=== PATIENT | male | born 1995 | race Caucasian/White ===

== ENCOUNTER 2016-12-04 00:36 | Emergency (ER) | payer OTHER ==
[~2016-12-04] VITALS: Ht 172.7 cm; Wt 95.3 kg
[2016-12-04 00:44] VITALS: BP 145/85
[2016-12-04] MEDS ORDERED: LIDOCAINE 1% / SOD BICARB 8.4% 20 ML VIAL. IJ ONE (01:15)
--- NOTE | 2016-12-04 01:26 | PHYS DOC ---
Past Medical History Past Medical History: No Pertinent History Past Surgical History: No Surgical History Alcohol Use: Occasionally Drug Use: None Adult General Chief Complaint Chief Complaint: LACERATION/AVULSION HPI HPI Patient is a 21 year ol male who presents to the ER today with a laceration to his right thumb. 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 Patient denies any other complaints. Patient's tetanus status is up-to-date. Physical exam is significant for a 3 cm laceration to the lateral/radial aspect of his right thumb. Patient is neurovascularly intact. Bleeding is well- controlled. Patient has sensation distally. Assessment and plan this is a 21-year-old gentleman status post laceration to his right thumb. Patient was sutured in the ER. Patient tolerate procedure well. Check in 2 days. Sutures out in 7-10 days. She has follow-up with workman's comp. Laceration procedure note wound anesthetized with 2 mL of lidocaine. Wound was irrigated with 200 mL of normal saline as well as Betadine prep. 4 times 5. 0 Ethilon sutures simple interrupted placed. Review of Systems Review of Systems Constitutional: Denies fever or chills [] Eyes: Denies change in visual acuity, redness, or eye pain [] All other review systems are negative except as documented in the history of present illness portion. Current Medications Current Medications Current Medications Medications (Trade) Dose Ordered Sig/Krista Start Time Stop Time Status Last Admin Dose Admin Lidocaine/Sodium Bicarbonate (Buffered Lidocaine 1%) 20 ml STK-MED ONCE 12/04/16 01:15 12/04/16 01:16 DC Allergies Allergies Allergies Coded Allergies Type Severity Reaction Last Updated Verified sulfamethoxazole Allergy Unknown 12/04/16 Yes trimethoprim Allergy Unknown 12/04/16 Yes Physical Exam Physical Exam Constitutional: Well developed, well nourished, no acute distress, non-toxic appearance. [] HENT: Normocephalic, atraumatic, bilateral external ears normal, oropharynx moist, no oral exudates, nose normal. [] Eyes: PERRLA, EOMI, conjunctiva normal, no discharge. [] Neck: Normal range of motion, no tenderness, supple, no stridor. [] Cardiovascular:Heart rate regular rhythm, no murmur [] Lungs & Thorax: Bilateral breath sounds clear to auscultation [] Abdomen: Bowel sounds normal, soft, no tenderness, no masses, no pulsatile masses. [] Skin: Warm, dry, no erythema, no rash. [] Back: No tenderness, no CVA tenderness. [] Extremities: See above Current Patient Data Vital Signs Vital Signs Date Time Temp Pulse Resp B/P (MAP) Pulse Ox O2 Delivery O2 Flow Rate FiO2 12/04/16 00:44 98.1 93 16 95 Room Air 98.1 EKG EKG [] Radiology/Procedures Radiology/Procedures [] Course & Med Decision Making Course & Med Decision Making Pertinent Labs and Imaging studies reviewed. (See chart for details) [] Dragon Disclaimer Dragon Disclaimer This electronic medical record was generated, in whole or in part, using a voice recognition dictation system. Departure Departure Impression: Primary Impression: Laceration of right thumb Disposition: 01 HOME, SELF-CARE Condition: IMPROVED Referrals: UNKNOWN PCP NAME (PCP) Patient Instructions: Laceration Care, Adult Additional Instructions: Wound check in 2 days. Sutures out in 7-10 days. Please make an appointment with her workman's comp physician to further assess your injury and to determine your work limitations. KLEVER MAN MD Dec 04, 2016 01:26
[2016-12-04] MEDS ORDERED: NEOMY/BACITR/POLYMYXIN OINT PACKET. TP ONE (01:55)
== END 2016-12-04 02:01 | disposition home or self-care (01) ==
LOC: ER 00:36
DX: S61.011A Laceration without foreign body of right thumb without damage to nail, initial encounter (principal); Z88.1 Allergy status to other antibiotic agents; Z88.2 Allergy status to sulfonamides; W26.8XXA Contact with other sharp object(s), not elsewhere classified, initial encounter; Y93.89 Activity, other specified; Y92.89 Other specified places as the place of occurrence of the external cause; Y99.8 Other external cause status
CPT/HCPCS: 12002; 99283-25

== ENCOUNTER 2016-12-08 13:50 | Emergency (ER) | payer OTHER ==
[~2016-12-08] VITALS: Ht 172.7 cm; Wt 95.3 kg
[2016-12-08 14:00] VITALS: BP 144/82
--- NOTE | 2016-12-08 14:07 | PHYS DOC ---
Past Medical History Past Medical History: No Pertinent History Past Surgical History: No Surgical History Alcohol Use: Occasionally Drug Use: None Adult General Chief Complaint Chief Complaint: WOUND CHECK [facility] HPI Patient is a 21 year old male presents to the emergency department with request for repeat wound check. Patient states that he had sutures placed 6 days ago and they began to come out within 2 days. Since states he was evaluated in another ER for the same complaint and Steri-Strips were placed. He states the Steri-Strips come off and he is here seeking placement of Steri- Strips. Review of Systems Review of Systems Constitutional: Denies fever or chills [] Eyes: Denies change in visual acuity, redness, or eye pain [] HENT: Denies nasal congestion or sore throat [] Respiratory: Denies cough or shortness of breath [] Cardiovascular: No additional information not addressed in HPI [] GI: Denies abdominal pain, nausea, vomiting, bloody stools or diarrhea [] : Denies dysuria or hematuria [] Musculoskeletal: Laceration Integument: Denies rash or skin lesions [] Neurologic: Denies headache, focal weakness or sensory changes [] Endocrine: Denies polyuria or polydipsia [] Allergies Allergies Allergies Coded Allergies Type Severity Reaction Last Updated Verified sulfamethoxazole Allergy Unknown 12/04/16 Yes trimethoprim Allergy Unknown 12/04/16 Yes Physical Exam Physical Exam Skin: Right hand, proximal to the thumb on the lateral aspect of the hand, partially healed laceration, well granulated, no surrounding erythema or induration. There is no discharge from the wound. There is one remaining suture. Patient has full range of motion of the thumb without difficulty. Neurovascular intact distally. Wound care: Wound cleansed, Steri-Strips placed by nursing staff. Patient tolerated well. EKG EKG [] Radiology/Procedures Radiology/Procedures [] Course & Med Decision Making Course & Med Decision Making Pertinent Labs and Imaging studies reviewed. (See chart for details) [] Dragon Disclaimer Dragon Disclaimer This electronic medical record was generated, in whole or in part, using a voice recognition dictation system. Departure Departure Impression: Primary Impression: Visit for wound check Disposition: HOME, SELF-CARE Condition: STABLE Referrals: UNKNOWN PCP NAME (PCP) Additional Instructions: Keep area clean and dry. MITCHEL BUCHANAN FORDER OPERATOR Dec 08, 2016 14:07
== END 2016-12-08 14:30 | disposition home or self-care (01) ==
LOC: ER 13:50
DX: Z48.01 Encounter for change or removal of surgical wound dressing (principal); Z88.2 Allergy status to sulfonamides; Z88.1 Allergy status to other antibiotic agents
CPT/HCPCS: 99282